=== PATIENT | male | born 1970 | race Caucasian/White ===

== ENCOUNTER 2017-06-29 15:17 | Emergency (ER) | payer OTHER ==
[~2017-06-29] VITALS: Ht 177.8 cm; Wt 98.0 kg
[~2017-06-29 15:17] MED LIST: ACET-1256 PO
[2017-06-29 15:46] VITALS: TEMP 36.9; Ht 177.8 cm; Wt 98.0 kg
[2017-06-29] MEDS ORDERED: ACETAMINOPHEN 500 MG TAB PO STA (16:23)
--- NOTE | 2017-06-29 16:28 | EMERGENCY ROOM VISIT NOTE ---
History Report prepared by Elida: Manny Luz Under the Supervision of: Mariam MorenoO. First contact with patient: 16:08 Chief Complaint: FLANK PAIN Stated Complaint: LT SIDE BACK HURTS History of Present Illness The patient is a 47 year old male who presents to the Emergency Room with complaints of worsening left lower back pain that started this morning. The patient states that the pain is worse with movement and standing. He states that he has no history of back pain, and he has had no recent change in activity or heavy lifting. He states that the pain stays in the back, and it does not radiate into his legs or buttocks. The patient additionally notes that he has some nausea, sleepiness, and yesterday he had the chills, no fevers. He denies any change in bowel movements or urination. He states that he has been drinking enough water recently. The patient denies any numbness and tingling. The patient states that he has a history of hypertension, and he has not had any recent changes in medications. He additionally notes that he had a similar episode of back pain two weeks ago which resolved. Denies recent illness, denies chest pain or cough. Source of History: patient Onset: this morning Position: back (left lower) Timing: worsening Modifying Factors (Worsening): movement, other (standing) Associated Symptoms: + chills, + nausea, No numbness Review of Systems See HPI for pertinent positives & negatives. A total of 10 systems reviewed and were otherwise negative. Past Medical & Surgical Medical Problems: (1) Dyslipidemia (2) Hypertension Family History FH: breast cancer MOTHER FH: coronary artery disease FATHER Social History Smoking Status: Never Smoker Marital Status: single Occupation Status: employed Current/Historical Medications Scheduled Amlodipine (Norvasc), 10 MG PO DAILY Allergies Coded Allergies: No Known Allergies (Unverified , 12/02/13) Physical Exam Vital Signs Date Time Temp Pulse Resp B/P (MAP) Pulse Ox O2 Delivery O2 Flow Rate FiO2 06/29/17 18:10 81 139/82 96 Room Air 06/29/17 15:46 36.9 87 20 127/85 96 Room Air Physical Exam GENERAL: alert, well appearing, well nourished, no distress, non-toxic EYE EXAM: normal conjunctiva, PERRL and EOM's grossly intact OROPHARYNX: no exudate, no erythema, lips, buccal mucosa, and tongue normal and mucous membranes are moist NECK: supple, no nuchal rigidity, no adenopathy, non-tender LUNGS: Clear to auscultation. Normal chest wall mechanics, no w/r/r HEART: no murmurs, S1 normal and S2 normal ABDOMEN: Mild suprapubic tenderness, abdomen soft, normo-active bowel sounds, no masses, no rebound or guarding. BACK: Straight leg raise is negative. Back is symmetrical on inspection and there is no deformity, no midline tenderness or step off, no CVA tenderness. No rashes or sores. Unable to reproduce his left flank/left low back pain. No tenderness to palpation. SKIN: no rashes and no bruising UPPER EXTREMITIES: upper extremities are grossly normal. Nml ROM, and nml pulses. LOWER EXTREMITIES: No pitting edema. Nml ROM and nml pulses. NEURO EXAM: Normal sensorium, cranial nerves II-XII grossly intact, normal speech, no gross weakness of arms, no gross weakness of legs. Gross sensation intact. Medical Decision & Procedures ER Provider Diagnostic Interpretation: Radiology results have been interpreted by the radiologist and reviewed by me. ABDOMEN AND PELVIS CT WITHOUT CONTRAST CT DOSE: 621.50 mGy.cm HISTORY: left flank pain, suprapubic pain TECHNIQUE: Multiaxial CT images of the abdomen and pelvis were performed without the use of intravenous and oral contrast according to the standard department stone protocol. A dose lowering technique was utilized adhering to the principles of ALARA. COMPARISON STUDY: Abdomen and pelvis CT 10/01/2010. FINDINGS: The lung bases are clear. No fractures within the visualized osseous structures. Punctate calcified granulomas within the spleen. The unenhanced liver, gallbladder, pancreas, adrenal glands, and kidneys are unremarkable. No renal or ureteral calculi. No hydronephrosis. The bladder is mildly distended. No bladder wall thickening. No retroperitoneal lymphadenopathy. Mild mesenteric fat stranding with a few prominent mesenteric lymph nodes measuring up to 1 cm. This is nonspecific but favors a mild mesenteric panniculitis. Suboptimal evaluation for bowel pathology due to the lack of intravenous and oral contrast. However, there is no definite bowel wall thickening or obstruction. Normal appendix. IMPRESSION: 1. No renal or ureteral calculi. No hydronephrosis. 2. No definite bowel wall thickening or obstruction. 3. Normal appendix. 4. Mild mesenteric panniculitis. 5. The bladder is mildly distended. No bladder wall thickening. Electronically signed by: Darryl Le M.D. 06/29/2017 5:36 PM Dictated Date/Time: 06/29/2017 5:30 PM Laboratory Results 06/29/17 16:55 Red Blood Count 4.41, Mean Corpuscular Volume 85.9, Mean Corpuscular Hemoglobin 31.1, Mean Corpuscular Hemoglobin Concent 36.1, Mean Platelet Volume 9.5, Neutrophils (%) (Auto) 62.6, Lymphocytes (%) (Auto) 25.1, Monocytes (%) (Auto) 11.1, Eosinophils (%) (Auto) 0.5, Basophils (%) (Auto) 0.5, Neutrophils # (Auto ) 2.65, Lymphocytes # (Auto) 1.06, Monocytes # (Auto) 0.47, Eosinophils # (Auto ) 0.02, Basophils # (Auto) 0.02 06/29/17 16:55 Test 06/29/17 16:10 06/29/17 16:55 Urine Color YELLOW Urine Appearance CLEAR (CLEAR) Urine pH 6.5 (4.5-7.5) Urine Specific [place] 1.009 (1.000-1.030) Urine Protein NEG (NEG) Urine Glucose (UA) NEG (NEG) Urine Ketones NEG (NEG) Urine Occult Blood NEG (NEG) Urine Nitrite NEG (NEG) Urine Bilirubin NEG (NEG) Urine Urobilinogen NEG (NEG) Urine Leukocyte Esterase NEG (NEG) White Blood Count 4.23 K/uL (4.8-10.8) Red Blood Count 4.41 M/uL (4.7-6.1) Hemoglobin 13.7 g/dL (14.0-18.0) Hematocrit 37.9 % (42-52) Mean Corpuscular Volume 85.9 fL (80-100) Mean Corpuscular Hemoglobin 31.1 pg (25-34) Mean Corpuscular Hemoglobin Concent 36.1 g/dl (32-36) Platelet Count 189 K/uL (130-400) Mean Platelet Volume 9.5 fL (7.4-10.4) Neutrophils (%) (Auto) 62.6 % Lymphocytes (%) (Auto) 25.1 % Monocytes (%) (Auto) 11.1 % Eosinophils (%) (Auto) 0.5 % Basophils (%) (Auto) 0.5 % Neutrophils # (Auto) 2.65 K/uL (1.4-6.5) Lymphocytes # (Auto) 1.06 K/uL (1.2-3.4) Monocytes # (Auto) 0.47 K/uL (0.11-0.59) Eosinophils # (Auto) 0.02 K/uL (0-0.5) Basophils # (Auto) 0.02 K/uL (0-0.2) RDW Standard Deviation 40.5 fL (36.4-46.3) RDW Coefficient of Variation 12.8 % (11.5-14.5) Immature Granulocyte % (Auto) 0.2 % Immature Granulocyte # (Auto) 0.01 K/uL (0.00-0.02) Anion Gap 8.0 mmol/L (3-11) Est Creatinine Clear Calc Drug Dose 136.0 ml/min Estimated GFR () 123.7 Estimated GFR (Non- 106.7 BUN/Creatinine Ratio 9.5 (10-20) Calcium Level 8.9 mg/dl (8.5-10.1) Laboratory results per my review. Medications Administered Medications (Trade) Dose Ordered Sig/Fritz Route Start Time Stop Time Status Last Admin Dose Admin Acetaminophen (Tylenol Tab) 1,000 mg NOW STAT PO 06/29/17 16:23 06/29/17 16:25 DC 06/29/17 16:59 1,000 MG Ketorolac Tromethamine (Toradol Inj) 30 mg NOW STAT IV 06/29/17 17:47 06/29/17 17:48 DC 06/29/17 18:11 30 MG ED Course 1608: The patient was evaluated in room B8. A complete history and physical exam was performed. 1623: Tylenol 1000mg PO 1747: Toradol 30mg IV 1802: Upon reevaluation, the patient is feeling better. I discussed the findings and the treatment plan with the patient. He verbalizes agreement and understanding. He was discharged home. Medical Decision Differential diagnosis: Etiologies such as renal colic, appendicitis, diverticulitis, mesenteric ischemia, aortic pathology, infections, inflammatory bowel disease, PUD, biliary pathology, UTI, musculoskeletal, disc herniation, fracture, aortic disease, metastatic disease, cord compression, discitis, infection, renal colic , gastrointestinal, acute exacerbation of chronic back pain, sciatica, cauda equina, as well as others were entertained. Pt well appearing here. Pain improved with tylenol/ibuprofen. Discussed results. No recent trauma, not immunocompromised, no hx of rheumatologic conditions. Discussed antiinflammatories, f/u with PCP, sx to watch/return for , he verbalized understanding and was agreeable with plan. Pt well appearing at time of DC, tolerating po, stated pain was improved, ambulating with a steady gait in his usual fashion. Medication Reconcilliation Current Medication List: was personally reviewed by me Blood Pressure Screening Patient's blood pressure: Elevated blood pressure Blood pressure disposition: Elevated BP felt to be situational Impression Primary Impression: Left flank pain Additional Impression: Panniculitis Scribe Attestation The scribe's documentation has been prepared under my direction and personally reviewed by me in its entirety. I confirm that the note above accurately reflects all work, treatment, procedures, and medical decision making performed by me. Departure Information Dispostion Home / Self-Care Referrals Brent Wang III, M.D. (PCP) Forms HOME CARE DOCUMENTATION FORM, IMPORTANT VISIT INFORMATION Patient Instructions My [facility] [employer] Additional Instructions Please drink plenty of water. You may eat normally. You may otherwise participate in regular activity as tolerated. You may use Tylenol and ibuprofen as needed for your pain. Do not take ibuprofen and an empty stomach. Please follow up with your family doctor this week for recheck to assure your symptoms are improving. If you develop worsening pain, fevers, vomiting, diarrhea, notice a change in her urine, develop a rash or sore, you have any other new concerns, please return the emergency room. Problem Qualifiers
[2017-06-29] MEDS ORDERED: AMLO-114 PO (16:44)
[2017-06-29 17:02] LABS: BASO % 0.5 %; BASO ABS # 0.02 K/uL (0-0.2); EOS % 0.5 %; EOS ABS # 0.02 K/uL (0-0.5); HEMATOCRIT 37.9 % (42-52); HEMOGLOBIN 13.7 g/dL (14.0-18.0); IG# 0.01 K/uL (0.00-0.02); LYMPH % 25.1 %; LYMPH ABS # 1.06 K/uL (1.2-3.4); MEAN CELL VOLUME 85.9 fL (80-100); MEAN CORPUSCULAR HEMOGLOBIN 31.1 pg (25-34); MEAN CORPUSCULAR HGB CONC 36.1 g/dl (32-36); MEAN PLATELET VOLUME 9.5 fL (7.4-10.4); MONO % 11.1 %; MONO ABS # 0.47 K/uL (0.11-0.59); NEUT % 62.6 %; NEUT ABS # 2.65 K/uL (1.4-6.5); PLATELET COUNT 189 K/uL (130-400); RED CELL DISTRIBUTION WIDTH CV 12.8 % (11.5-14.5); RED CELL DISTRIBUTION WIDTH SD 40.5 fL (36.4-46.3); WHITE BLOOD COUNT 4.23 K/uL (4.8-10.8)
[2017-06-29 17:19] LABS: CALCIUM 8.9 mg/dl (8.5-10.1); CREATININE 0.78 mg/dl (0.60-1.40); POTASSIUM 3.4 mmol/L (3.5-5.1)
--- NOTE | 2017-06-29 17:38 | DIAGNOSTIC IMAGING REPORT ---
ABDOMEN AND PELVIS CT WITHOUT CONTRAST CT DOSE: 621.50 mGy.cm HISTORY: left flank pain, suprapubic pain TECHNIQUE: Multiaxial CT images of the abdomen and pelvis were performed without the use of intravenous and oral contrast according to the standard department stone protocol. A dose lowering technique was utilized adhering to the principles of ALARA. COMPARISON STUDY: Abdomen and pelvis CT 10/01/2010. FINDINGS: The lung bases are clear. No fractures within the visualized osseous structures. Punctate calcified granulomas within the spleen. The unenhanced liver, gallbladder, pancreas, adrenal glands, and kidneys are unremarkable. No renal or ureteral calculi. No hydronephrosis. The bladder is mildly distended. No bladder wall thickening. No retroperitoneal lymphadenopathy. Mild mesenteric fat stranding with a few prominent mesenteric lymph nodes measuring up to 1 cm. This is nonspecific but favors a mild mesenteric panniculitis. Suboptimal evaluation for bowel pathology due to the lack of intravenous and oral contrast. However, there is no definite bowel wall thickening or obstruction. Normal appendix. IMPRESSION: 1. No renal or ureteral calculi. No hydronephrosis. 2. No definite bowel wall thickening or obstruction. 3. Normal appendix. 4. Mild mesenteric panniculitis. 5. The bladder is mildly distended. No bladder wall thickening. Electronically signed by: Darryl Le M.D. 06/29/2017 5:36 PM Dictated Date/Time: 06/29/2017 5:30 PM
[2017-06-29] MEDS ORDERED: KETOROLAC TROMETHAMINE 30 MG/ML VIAL IV STA (17:47)
[2017-06-29 18:10] VITALS: BP 139/82; PULSE 81; O2SAT 96
== END 2017-06-29 18:35 | disposition home or self-care (01) ==
LOC: C.EDB 15:18
DX: M54.07 Panniculitis affecting regions of neck and back, lumbosacral region (principal); I10 Essential (primary) hypertension; E78.5 Hyperlipidemia, unspecified; I25.10 Atherosclerotic heart disease of native coronary artery without angina pectoris; Z80.3 Family history of malignant neoplasm of breast; Z79.899 Other long term (current) drug therapy